=== PATIENT | male | born 1965 | race Caucasian/White ===

== ENCOUNTER 2019-03-09 08:56 | Day surgery (SDC) | payer BC ==
[2019-03-08 12:32] VITALS: BMI 34.2
[2019-03-09] MEDS ORDERED: Dexamethasone 20 MG/5 ML VIAL ONE (09:10)
[2019-03-09] MEDS ORDERED: PROPOFOL 200 MG/20 ML VIAL ONE (09:10)
[2019-03-09] MEDS ORDERED: PHENYLEPHRINE-NS 100 MCG/ML 10 ML SYRINGE ONE (09:10)
[2019-03-09] MEDS ORDERED: ePHEDrine/0.9% NaCl/PF SYRINGE 50 mg/10 ml ONE (09:10)
[2019-03-09] MEDS ORDERED: Lidocaine 1% PF 5 ML VIAL ONE (09:10)
[2019-03-09] MEDS ORDERED: Ondansetron PF 4 MG/2 ML Vial ONE (09:10)
[2019-03-09] MEDS ORDERED: Fentanyl 100 MCG/2 ML VIAL ONE (10:47)
[2019-03-09] MEDS ORDERED: Lidocaine 1% w/Epinephrine 1:100K 20 ML VIAL ONE (12:07)
--- NOTE | 2019-03-10 09:16 | OP ---
DATE OF PROCEDURE: 03/09/2019 PREOPERATIVE DIAGNOSIS: Right parotid mass. POSTOPERATIVE DIAGNOSIS: Right parotid mass. PROCEDURE PERFORMED: Right superficial parotidectomy with facial nerve dissection. FINDINGS: The patient had a mass in the tail of the parotid that extended towards the deep lobe and was sent for permanent histologic evaluation. PROCEDURE IN DETAIL: After consent was obtained, the patient was identified, brought to the operating room and placed on the operating table in supine position. General endotracheal anesthesia was obtained, and the patient positioned for surgery. The facial nerve monitor was placed and documented to be functioning well. We then positioned the patient for surgery. Preauricular region in the neck and the natural skin crease in the neck were identified and infiltrated with 1% lidocaine with 1:100,000 epinephrine. We then demarcated the area with a marking pen and made an incision with a 15 and carried to the skin and subcutaneous tissues with the electrocautery. Flaps were elevated at the level of the SMAS and parotid fascia that was secured anteriorly. The flap was then secured anteriorly as we also elevated posteriorly to a lesser amount. We then dissected along the anterior border of the sternocleidomastoid and the preauricular region and was able to mobilize the parotid anteriorly as we dissected towards the pointer cartilage. Inferior to the pointer cartilage, we found the trunk of the facial nerve, which was dissected anteriorly as was the branches. This then allowed us to freely address and proceed with resection of the tail of the parotid lesion without concern for injuring the facial nerve. This was done in a hemostatic fashion with electrocautery. Bleeding points were either cauterized or suture ligated as they were encountered. Specimen was sent for permanent histologic evaluation. Then, we turned our attention to wound closure and after hemostasis was obtained, flaps were reapproximated with 4-0 Monocryl and the skin was closed with 6-0 Prolene. The patient was awakened, extubated, and taken to recovery room in stable condition prior to discharge home. Job ID: [id number]
--- NOTE | 2019-03-15 17:37 | EKG ---
Test Reason : PREOP Blood Pressure : / mmHG Vent. Rate : 074 BPM Atrial Rate : 074 BPM P-R Int : 164 ms QRS Dur : 094 ms QT Int : 378 ms P-R-T Axes : 034 069 023 degrees QTc Int : 419 ms Poor data quality, interpretation may be adversely affected Normal sinus rhythm Normal ECG No previous ECGs available Confirmed by DR. Chandra SAEED ([id number]) on 03/15/2019 5:37:13 PM Referred By: KACI Confirmed By:DR. Chandra SAEED
== END 2019-03-09 13:33 | disposition home or self-care (01) ==
LOC: SDC 08:56
PROVIDERS: ATTEND Specialist
PROC: 0CB80ZZ Excision of Right Parotid Gland, Open Approach (ICD-10-PCS; principal; 2019-03-09)
DX: K11.8 Other diseases of salivary glands (principal); I10 Essential (primary) hypertension; Z79.899 Other long term (current) drug therapy
CPT/HCPCS: 88307; 93005; 93010; J1100; J2001; J2405; J2704; J3010